=== PATIENT | male | born 1940 | race African-American/Black ===

== ENCOUNTER 2020-06-27 12:11 | Emergency (ER) | payer OTHER, MEDICARE ==
[2020-07-16] MEDS ORDERED: ACETAMINOPHEN500 MG GT (17:21)
[2020-07-16] MEDS ORDERED: LEVOTHYROXINE50 MC1 GT (17:22)
[2020-07-16] MEDS ORDERED: LIPITOR 10MG TA10 MG GT (17:22)
[2020-07-16] MEDS ORDERED: ASPIRIN EC81 MG GT (17:22)
[2020-07-16] MEDS ORDERED: LOPRESSOR25 MG GT (17:23)
[2020-07-16] MEDS ORDERED: METFORMIN HCL500 MG GT (17:23)
[2020-07-16] MEDS ORDERED: PEPCID AC20 MG GT (17:23)
[2020-07-16] MEDS ORDERED: MIRALAX17 GM GT (17:24)
[2020-07-16] MEDS ORDERED: PROTONIX 40MG T40 MG GT (17:24)
[2020-07-16] MEDS ORDERED: COMBIGAN EYE DRO5 ML OU (17:24)
[2020-07-16] MEDS ORDERED: LATANOPROST2.5 ML OU (17:25)
[2020-07-16] MEDS ORDERED: MIRTAZAPINE30 MG PO (17:27)
[2020-07-23] MEDS ORDERED: NORCO 5-325 TA1 EACH GT (12:58)
[2020-07-23] MEDS ORDERED: ONDANSETRON ODT8 MG GT (12:58)
== END 2020-06-27 14:29 | disposition home or self-care (01) ==
LOC: FER 12:11
DX: Z43.1 Encounter for attention to gastrostomy (principal); C02.9 Malignant neoplasm of tongue, unspecified
CPT/HCPCS: 74018

== ENCOUNTER → 2020-07-23 | Day surgery (SDC) | payer OTHER, MEDICARE ==
[~2020-07-23] MED LIST: ACETAMINOPHEN325 MG GT; ACETAMINOPHEN500 MG GT; ALPHAGAN 020 DROPS/M EYEBOTH; ASCORBIC ACID500 MG GT; ASPIRIN EC81 MG GT; BACTRIM DS TAB1 EACH GT; BETIMOL5 ML OU; CARAFATE1 GM GT; COMBIGAN EYE DRO5 ML OU; DIFLUCAN150 MG GT; DUONEB 2.5-0.5M1 AMP INH; FLORINEF0.1 MG GT; LATANOPROST2.5 ML OU; LEVAQUIN500 MG GT; LEVOTHYROXINE50 MC1 GT; LIPITOR 10MG TA10 MG GT; LIPITOR40 MG GT; LOPRESSOR25 MG GT; METFORMIN HCL500 MG GT; MIRALAX17 GM GT; MIRTAZAPINE30 MG GT; MIRTAZAPINE30 MG PO; NORCO 5-325 TA1 EACH GT; ONDANSETRON HCL4 MG GT; ONDANSETRON ODT8 MG GT; PENTOXIFYLLINE400 MG GT; PEPCID AC20 MG GT; PLAVIX75 MG GT; PROTONIX 40MG T40 MG GT; ROBITUSSIN100 MG/5 M GT; SYNTHROID75 MCG GT; TOPROL XL25 MG GT; TRAZODONE 50MG50 MG GT; XALATAN2.5 ML OU; XARELTO15 MG GT; ZINC SULFATE50 MG GT; [UNRECOGNIZED DRUG - OTHER]
[2020-07-23 09:59] LABS: HGB 8.5 g/dl (13.2-18.0); MCH 29.1 pg (25.0-31.0); MCHC 31.5 g/dL (32.0-36.0); MCV 92.5 fL (78.0-100.0); MPV 10.4 fL (6.0-9.5); RBC 2.92 M/uL (4.70-6.00); RDW 16.4 % (11.5-14.0); WBC 4.4 K/uL (4.0-10.5)
[2020-07-23 10:42] LABS: ALBUMIN 3.4 g/dL (3.4-5.0); BILIRUBIN - TOTAL 0.5 mg/dL (0.2-1.0); CREATININE 1.33 mg/dL (0.67-1.17); GLOBULIN (CALCULATION) 4.6 g/dL; POTASSIUM 4.9 mmol/L (3.5-5.1)
== END | disposition home or self-care (01) ==
LOC: FAS 09:08
PROVIDERS: Surgery
DX: K94.23 Gastrostomy malfunction (principal); T82.594A Other mechanical complication of infusion catheter, initial encounter; I87.2 Venous insufficiency (chronic) (peripheral); I25.10 Atherosclerotic heart disease of native coronary artery without angina pectoris; I25.2 Old myocardial infarction; I12.9 Hypertensive chronic kidney disease with stage 1 through stage 4 chronic kidney disease, or unspecified chronic kidney disease; N18.9 Chronic kidney disease, unspecified; E78.00 Pure hypercholesterolemia, unspecified; E03.9 Hypothyroidism, unspecified; E11.9 Type 2 diabetes mellitus without complications; F17.210 Nicotine dependence, cigarettes, uncomplicated; Y83.8 Other surgical procedures as the cause of abnormal reaction of the patient, or of later complication, without mention of misadventure at the time of the procedure; Z79.899 Other long term (current) drug therapy; Z79.84 Long term (current) use of oral hypoglycemic drugs; Z98.84 Bariatric surgery status; Z98.890 Other specified postprocedural states; Z20.822 Contact with and (suspected) exposure to COVID-19
CPT/HCPCS: 36415; 71045; 76000; 77001; 80053; C1788; J0690; J1644; J2001; J2250; J2704; J7120

== ENCOUNTER 2020-08-21 14:55 | Emergency (ER) | payer OTHER, MEDICARE ==
[~2020-08-21 14:55] MED LIST changes: -ACETAMINOPHEN325 MG GT; -ALPHAGAN 020 DROPS/M EYEBOTH; -ASCORBIC ACID500 MG GT; -BACTRIM DS TAB1 EACH GT; -BETIMOL5 ML OU; -CARAFATE1 GM GT; -DIFLUCAN150 MG GT; -DUONEB 2.5-0.5M1 AMP INH; -FLORINEF0.1 MG GT; -LEVAQUIN500 MG GT; -LIPITOR40 MG GT; -MIRTAZAPINE30 MG GT; -ONDANSETRON HCL4 MG GT; -PENTOXIFYLLINE400 MG GT; -PLAVIX75 MG GT; -ROBITUSSIN100 MG/5 M GT; -SYNTHROID75 MCG GT; -TOPROL XL25 MG GT; -TRAZODONE 50MG50 MG GT; -XALATAN2.5 ML OU; -XARELTO15 MG GT; -ZINC SULFATE50 MG GT; -[UNRECOGNIZED DRUG - OTHER]
== END 2020-08-21 18:08 | disposition home or self-care (01) ==
LOC: FER 14:55
DX: R51.9 Headache, unspecified (principal); H61.21 Impacted cerumen, right ear; M54.2 Cervicalgia; I25.2 Old myocardial infarction; I12.9 Hypertensive chronic kidney disease with stage 1 through stage 4 chronic kidney disease, or unspecified chronic kidney disease; E11.22 Type 2 diabetes mellitus with diabetic chronic kidney disease; N18.30 Chronic kidney disease, stage 3 unspecified; E78.5 Hyperlipidemia, unspecified; Z85.810 Personal history of malignant neoplasm of tongue; Z98.890 Other specified postprocedural states
CPT/HCPCS: 70486; 70490; 74230; 92611

== ENCOUNTER 2020-10-13 22:59 | Emergency (ER) | payer OTHER, MEDICARE ==
[2020-10-13 23:41] LABS: BASOPHIL 0.4 % (0-2); EOSINOPHIL 0.5 % (0-7); HCT 27.8 % (42.0-52.0); LYMPHOCYTE 5.3 % (15-48); MCH 30.7 pg (25.0-31.0); MCHC 30.6 g/dL (32.0-36.0); MCV 100.4 fL (78.0-100.0); MONOCYTE 13.4 % (0-12); NRBC 0; PLT 293 K/uL (150-400); RBC 2.77 M/uL (4.70-6.00); RDW 15.9 % (11.5-14.0)
[2020-10-13 23:43] LABS: HGB 8.5 g/dl (13.2-18.0)
[2020-10-13 23:44] LABS: WBC 13.1 K/uL (4.0-10.5)
[2020-10-14 00:02] LABS: ALBUMIN 2.7 g/dL (3.4-5.0); BILIRUBIN - TOTAL 0.3 mg/dL (0.2-1.0); CREATININE 1.76 mg/dL (0.67-1.17); GLOBULIN (CALCULATION) 5.3 g/dL; POTASSIUM 5.3 mmol/L (3.5-5.1)
== END 2020-10-14 03:10 | disposition other institution (70) ==
LOC: FER 22:59
PROVIDERS: Emergency Medicine
DX: I21.4 Non-ST elevation (NSTEMI) myocardial infarction (principal); R06.1 Stridor; R22.1 Localized swelling, mass and lump, neck; R74.8 Abnormal levels of other serum enzymes; I10 Essential (primary) hypertension; E11.9 Type 2 diabetes mellitus without complications; Z87.891 Personal history of nicotine dependence
CPT/HCPCS: 36415; 70491; 71045; 80053; 83605; 84484; 85025; 93005; 94640; 94760; 96374; C1751; J2930; Q9967

== ENCOUNTER 2020-11-17 18:13 | Inpatient (IN) | payer OTHER, MEDICARE ==
[~2020-11-17] VITALS: Ht 170.2 cm; Wt 70.0 kg
[2020-11-17 20:18] LABS: BASOPHIL 0.3 % (0-2); EOSINOPHIL 0.7 % (0-7); HCT 29.5 % (42.0-52.0); HGB 9.5 g/dl (13.2-18.0); LYMPHOCYTE 12.1 % (15-48); MCH 30.6 pg (25.0-31.0); MCHC 32.2 g/dL (32.0-36.0); MCV 95.2 fL (78.0-100.0); MONOCYTE 8.7 % (0-12); MPV 10.4 fL (6.0-9.5); NEUTROPHIL 77.6 % (41-80); NRBC 0; PLT 328 K/uL (150-400); RDW 14.1 % (11.5-14.0); WBC 16.2 K/uL (4.0-10.5)
[2020-11-17 20:25] LABS: BILIRUBIN NEGATIVE (NEGATIVE); BLOOD 3+ Ery/uL (NEGATIVE); COLOR YELLOW (YELLOW); GLUCOSE (U) NORMAL (NORMAL); LEUKOCYTES NEGATIVE Leu/uL (NEGATIVE); NITRITE NEGATIVE (NEGATIVE); PROTEIN TRACE (LOW) mg/dL (NEGATIVE); UROBILINOGEN 0.2 mg/dL (0.2-1.0); pH 5.5 (5.0-9.0)
[2020-11-17 20:26] LABS: CLARITY HAZY (CLEAR)
[2020-11-17 20:29] LABS: ALBUMIN 2.4 g/dL (3.4-5.0); BILIRUBIN - TOTAL 0.4 mg/dL (0.2-1.0); BUN/CREAT RATIO (CALC) 31.1 RATIO; CREATININE 1.48 mg/dL (0.67-1.17); GLOBULIN (CALCULATION) 4.8 g/dL; POTASSIUM 4.4 mmol/L (3.5-5.1); TOTAL PROTEIN 7.2 g/dL (6.4-8.2)
[2020-11-17 20:33] LABS: LACTIC ACID 2.4 mmol/L (0.4-1.9)
[2020-11-17 20:34] LABS: URINARY WBC RARE
[2020-11-17 20:35] LABS: AMORPHOUS URATES CRYSTALS MODERATE; BACTERIA TRACE; URINARY RBC 20-50
[2020-11-18] MEDS ORDERED: FLORINEF0.1 MG GT (11:48)
[2020-11-18] MEDS ORDERED: LEVAQUIN500 MG GT (11:50)
[2020-11-18] MEDS ORDERED: PENTOXIFYLLINE400 MG GT (11:51)
[2020-11-18] MEDS ORDERED: XARELTO15 MG GT (11:52)
[2020-11-18] MEDS ORDERED: CARAFATE1 GM GT (11:53)
[2020-11-18] MEDS ORDERED: TRAZODONE 50MG50 MG GT (11:54)
[2020-11-18] MEDS ORDERED: ACETAMINOPHEN325 MG GT (11:55)
[2020-11-18] MEDS ORDERED: DUONEB 2.5-0.5M1 AMP INH (11:58)
[2020-11-18] MEDS ORDERED: ASCORBIC ACID500 MG GT (11:59)
[2020-11-18] MEDS ORDERED: LIPITOR40 MG GT (11:59)
[2020-11-18] MEDS ORDERED: ALPHAGAN 020 DROPS/M EYEBOTH (12:00)
[2020-11-18] MEDS ORDERED: PEPCID AC20 MG GT (12:01)
[2020-11-18] MEDS ORDERED: PLAVIX75 MG GT (12:01)
[2020-11-18] MEDS ORDERED: ROBITUSSIN100 MG/5 M GT (12:02)
[2020-11-18] MEDS ORDERED: XALATAN2.5 ML OU (12:03)
[2020-11-18] MEDS ORDERED: METFORMIN HCL500 MG GT (12:04)
[2020-11-18] MEDS ORDERED: SYNTHROID75 MCG GT (12:04)
[2020-11-18] MEDS ORDERED: TOPROL XL25 MG GT (12:06)
[2020-11-18] MEDS ORDERED: MIRTAZAPINE30 MG GT (12:06)
[2020-11-18] MEDS ORDERED: ONDANSETRON HCL4 MG GT (12:07)
[2020-11-18] MEDS ORDERED: BETIMOL5 ML OU (12:09)
[2020-11-18] MEDS ORDERED: ZINC SULFATE50 MG GT (12:13)
--- NOTE | 2020-11-18 15:56 | NUR ---
11/18/20 Mr. Saldaña lives at home with his spouse. He was discharged from [facility] on 11/16/20. He has a trach, cane, rw, raised toiliet seat. suction, and s. chair. - [facility] id current and was notified of admission. Patient's request for PT and to have the same RN were relayed to [facility].
--- NOTE | 2020-11-18 20:04 | NUR ---
JEVITY 1.5 STARTED AT 40ML/HR PER MD MUNOZ ORDERS
--- NOTE | 2020-11-18 20:14 | NUR ---
PATIENT ON AEROSOL TPIECE. DECREASED PATIENT FROM 60% TO 35%, SAT MAINTAINED AT 100%. PATIENT WAS HYPOXIC ON ABG UPON ER VISIT. PATIENT HAS HAD COPIOUS SECRETIONS. SPUTUM SPECIMEN OBTAINED AND SENT TO LAB NOTIFIED RN AND VILMA DAVIS TO PLACE ORDER. BREATH SOUNDS IMPROVED WITH SUCTIONING, PATIENT HAS GOOD PRODUCTIVE COUGH PATIENT HAS RHONCI AND NO WHEEZING PRESENTLY. PATIENT MEDICATION SWITCHED TO FULL DOSE OF ALBUTEROL BY SUSAN ESPARZA. ALFARO SUCTION AND TUBING CHANGED OUT. CONTINUE TO MONITOR PATIENT THIS SHIFT PATIENT HAS NO COMPLAINTS OR NEEDS AT THIS TIME.
--- NOTE | 2020-11-18 21:35 | NUR ---
SPARE #6 MARIA TERESA AT BEDSIDE
[2020-11-19 04:31] LABS: BASOPHIL 0.3 % (0-2); HCT 22.4 % (42.0-52.0); LYMPHOCYTE 5.1 % (15-48); MCH 30.5 pg (25.0-31.0); MCHC 32.1 g/dL (32.0-36.0); MCV 94.9 fL (78.0-100.0); MONOCYTE 10.5 % (0-12); NEUTROPHIL 81.6 % (41-80); NRBC 0; PLT 203 K/uL (150-400); RBC 2.36 M/uL (4.70-6.00); WBC 8.6 K/uL (4.0-10.5)
[2020-11-19 04:40] LABS: HGB 7.2 g/dl (13.2-18.0)
[2020-11-19 04:41] LABS: BUN/CREAT RATIO (CALC) 29.1 RATIO; CREATININE 1.34 mg/dL (0.67-1.17); POTASSIUM 3.9 mmol/L (3.5-5.1)
[2020-11-19 08:54] LABS: HCT 21.3 % (42.0-52.0); HGB 7.1 g/dL (13.2-18.0)
[2020-11-19] MEDS ORDERED: [UNRECOGNIZED DRUG - OTHER] (13:52)
[2020-11-20 04:32] LABS: BASOPHIL 0.3 % (0-2); EOSINOPHIL 2.8 % (0-7); HCT 30.4 % (42.0-52.0); LYMPHOCYTE 7.1 % (15-48); MCH 30.7 pg (25.0-31.0); MCHC 33.2 g/dL (32.0-36.0); MCV 92.4 fL (78.0-100.0); MONOCYTE 9.8 % (0-12); MPV 9.9 fL (6.0-9.5); NEUTROPHIL 79.7 % (41-80); NRBC 0; PLT 230 K/uL (150-400); RBC 3.29 M/uL (4.70-6.00); WBC 9.3 K/uL (4.0-10.5)
[2020-11-20 04:34] LABS: HGB 10.1 g/dl (13.2-18.0)
[2020-11-20 04:45] LABS: BUN/CREAT RATIO (CALC) 28.2 RATIO; CREATININE 1.24 mg/dL (0.67-1.17); POTASSIUM 3.9 mmol/L (3.5-5.1)
--- NOTE | 2020-11-20 10:47 | NUR ---
11/20/20 Discharge is anticipated for 11/21. Please notify [facility] at [phone] if patient is discharged over the weekend. 02 was ordered and delivered from [facility]. However, per physician, patient no longer needs 02. [employer] picked up the 02.
--- NOTE | 2020-11-20 12:11 | NUR ---
11/20/20 Dr. Boyle requested a nebulizer to be arranged at discharge. Ms. Saldaña reports to already have a nebulizer.
[2020-11-21 04:08] LABS: BASOPHIL 0.4 % (0-2); EOSINOPHIL 2.6 % (0-7); HCT 30.5 % (42.0-52.0); HGB 9.9 g/dl (13.2-18.0); LYMPHOCYTE 5.4 % (15-48); MCH 30.2 pg (25.0-31.0); MCHC 32.5 g/dL (32.0-36.0); MONOCYTE 11.4 % (0-12); MPV 9.3 fL (6.0-9.5); NEUTROPHIL 79.8 % (41-80); NRBC 0; PLT 212 K/uL (150-400); RBC 3.28 M/uL (4.70-6.00); RDW 15.1 % (11.5-14.0); WBC 8.2 K/uL (4.0-10.5)
[2020-11-21 04:36] LABS: CREATININE 1.26 mg/dL (0.67-1.17); POTASSIUM 3.9 mmol/L (3.5-5.1)
[2020-11-21 12:02] LABS: BILIRUBIN 3+ mg/dL (NEGATIVE); BLOOD 3+ Ery/uL (NEGATIVE); GLUCOSE (U) TRACE mg/dL (NORMAL); LEUKOCYTES 2+ Leu/uL (NEGATIVE); NITRITE POSITIVE (NEGATIVE); PROTEIN 3+ mg/dL (NEGATIVE); SPECIFIC GRAVITY 1.015 (1.001-1.030)
[2020-11-21 12:04] LABS: CLARITY TURBID (CLEAR); COLOR RED (YELLOW)
[2020-11-21 12:11] LABS: BACTERIA 1+; URINARY RBC TNTC
[2020-11-21 20:40] LABS: INR 1.23 (0.9-1.2); PROTHROMBIN TIME 14.7 SECONDS (11.4-13.6)
[2020-11-21 20:41] LABS: PTT 61.2 SECONDS (22.2-34.7)
[2020-11-23 04:36] LABS: BASOPHIL 0.5 % (0-2); EOSINOPHIL 1.7 % (0-7); HCT 29.9 % (42.0-52.0); HGB 9.7 g/dl (13.2-18.0); LYMPHOCYTE 7.6 % (15-48); MCH 30.6 pg (25.0-31.0); MCHC 32.4 g/dL (32.0-36.0); MCV 94.3 fL (78.0-100.0); MPV 9.5 fL (6.0-9.5); NEUTROPHIL 79.7 % (41-80); NRBC 0; PLT 225 K/uL (150-400); RBC 3.17 M/uL (4.70-6.00); RDW 14.8 % (11.5-14.0); WBC 8.3 K/uL (4.0-10.5)
[2020-11-23 04:54] LABS: CREATININE 1.41 mg/dL (0.67-1.17); POTASSIUM 4.6 mmol/L (3.5-5.1)
--- NOTE | 2020-11-23 12:30 | NUR ---
SPOKE WITH SPOUSE VIA TELEPHONE. SHE ADVISED THAT PT. HAS SUCTION EQUIPMENT, NEUBLIZER, CANE, RW, RAISED TOLIET SEAT, SHOWER CHAIR. HE IS CURRENT WITH [facility]. PER PT. NO LONGER REQUIRES HOME O2. ADVISED DR. CANAS OF THE INFORMATION RECEIVED FROM HIS SPOUSE. DR. CANAS STATED HE MAY D/C PT ON 11/24/20.
[2020-11-23] MEDS ORDERED: DIFLUCAN150 MG GT (13:12)
[2020-11-23] MEDS ORDERED: BACTRIM DS TAB1 EACH GT (13:12)
--- NOTE | 2020-11-24 02:12 | NUR ---
TRACH MASK AND AEROSOL HUMIDFIER CHANGED AND CANISTER FILLED PATIENT REFUSED SUCTION AT THIS TIME. #6 MARIA TERESA, SAT 99% ON 28%/5LPM AEROSOL.
[2020-11-24 08:58] LABS: BASOPHIL 0.5 % (0-2); EOSINOPHIL 1.8 % (0-7); HCT 25.1 % (42.0-52.0); LYMPHOCYTE 6.7 % (15-48); MCH 30.3 pg (25.0-31.0); MCHC 31.9 g/dL (32.0-36.0); MCV 95.1 fL (78.0-100.0); MONOCYTE 11.9 % (0-12); MPV 9.6 fL (6.0-9.5); NEUTROPHIL 78.6 % (41-80); NRBC 0; PLT 212 K/uL (150-400); RBC 2.64 M/uL (4.70-6.00); RDW 14.8 % (11.5-14.0); WBC 6.6 K/uL (4.0-10.5)
[2020-11-24 11:09] LABS: CREATININE 1.7 mg/dL (0.67-1.17); POTASSIUM 5.2 mmol/L (3.5-5.1)
--- NOTE | 2020-11-24 16:25 | NUR ---
PT TO [facility] AT 1610.
--- NOTE | 2020-11-24 18:38 | NUR ---
PT VOIDED AT THIS TIME 150CC. BLADDER SCAN PATIENT AFTER VOID 75CC PVR
[2020-11-25 05:44] LABS: BASOPHIL 0.5 % (0-2); EOSINOPHIL 2.8 % (0-7); HGB 8.5 g/dl (13.2-18.0); LYMPHOCYTE 7.6 % (15-48); MCH 30.5 pg (25.0-31.0); MCHC 31.5 g/dL (32.0-36.0); MCV 96.8 fL (78.0-100.0); MONOCYTE 11.4 % (0-12); MPV 9.5 fL (6.0-9.5); NEUTROPHIL 77.3 % (41-80); NRBC 0; PLT 221 K/uL (150-400); RBC 2.79 M/uL (4.70-6.00); RDW 14.9 % (11.5-14.0); WBC 7.7 K/uL (4.0-10.5)
[2020-11-25 06:07] LABS: INR 1.2 (0.9-1.2); PROTHROMBIN TIME 14.4 SECONDS (11.4-13.6)
[2020-11-25 06:20] LABS: CREATININE 1.74 mg/dL (0.67-1.17)
[2020-11-25 06:21] LABS: POTASSIUM 5.6 mmol/L (3.5-5.1)
[2020-11-26 15:41] LABS: BILIRUBIN NEGATIVE (NEGATIVE); BLOOD 3+ Ery/uL (NEGATIVE); COLOR YELLOW (YELLOW); GLUCOSE (U) NORMAL (NORMAL); LEUKOCYTES NEGATIVE Leu/uL (NEGATIVE); NITRITE NEGATIVE (NEGATIVE); PROTEIN 2+ mg/dL (NEGATIVE); SPECIFIC GRAVITY 1.015 (1.001-1.030)
[2020-11-26 15:46] LABS: CLARITY HAZY (CLEAR)
[2020-11-26 15:51] LABS: URINARY RBC TNTC
[2020-11-27 06:43] LABS: BASOPHIL 0.4 % (0-2); EOSINOPHIL 2.5 % (0-7); HCT 25.1 % (42.0-52.0); HGB 7.8 g/dl (13.2-18.0); MCH 30.4 pg (25.0-31.0); MCHC 31.1 g/dL (32.0-36.0); MCV 97.7 fL (78.0-100.0); MONOCYTE 11.2 % (0-12); MPV 9.7 fL (6.0-9.5); NEUTROPHIL 77.5 % (41-80); NRBC 0; PLT 214 K/uL (150-400); RBC 2.57 M/uL (4.70-6.00); RDW 14.7 % (11.5-14.0); WBC 5.5 K/uL (4.0-10.5)
[2020-11-27 07:18] LABS: CREATININE 1.8 mg/dL (0.67-1.17); POTASSIUM 5.1 mmol/L (3.5-5.1)
[2020-11-27 07:19] LABS: BILIRUBIN - TOTAL 0.4 mg/dL (0.2-1.0)
[2020-11-27 10:25] LABS: BILIRUBIN NEGATIVE (NEGATIVE); BLOOD 3+ Ery/uL (NEGATIVE); CLARITY CLEAR (CLEAR); COLOR YELLOW (YELLOW); GLUCOSE (U) NORMAL (NORMAL); LEUKOCYTES NEGATIVE Leu/uL (NEGATIVE); NITRITE NEGATIVE (NEGATIVE); PROTEIN 2+ mg/dL (NEGATIVE); SPECIFIC GRAVITY 1.015 (1.001-1.030)
[2020-11-27 10:38] LABS: BACTERIA TRACE; URINARY RBC 20-50
--- NOTE | 2020-11-27 10:47 | NUR ---
MET WITH PT, SPOUSE AND DAUGHTER, PADDY. THEY ARE INTERESTED IN PT. GOING [facility] FOR [facility]. THEIR FIRST CHOICE IS [facility] IN [place]. THEY ARE CURRENT WITH [facility] AND WOULD BE INTERESTED IN CONTINUING CARE WITH [facility] AND HIRING A PRIVATE CAREGIVING COMPANY TO OFFER ASSISTANCE. GAVE THE NAME OF [employer] A CAREGIVING SERVICE PHONE NUMBER IS [phone].
--- NOTE | 2020-11-27 10:50 | NUR ---
REFERRAL HAS BEEN SENT TO [facility] IN [place] FAX NUMBER IS [phone]. [facility] NUMBER IS [phone].
--- NOTE | 2020-11-27 14:55 | NUR ---
RECEIVED TC FROM [place] WITH [facility]. THEY HAVE RECEIVED REFERRAL AND ARE WORKING ON THE REFERRAL, IT MAY BE MONDAY BEFORE WE HAVE AN ANSWER. [place] MOBILE NUMBER IS [phone]. ADVISED MRS. WATERS OF THIS INFORMATION.
[2020-11-28 05:47] LABS: BASOPHIL 0.5 % (0-2); EOSINOPHIL 2.2 % (0-7); HCT 27.6 % (42.0-52.0); HGB 8.6 g/dl (13.2-18.0); LYMPHOCYTE 11.4 % (15-48); MCH 30.3 pg (25.0-31.0); MCHC 31.2 g/dL (32.0-36.0); MCV 97.2 fL (78.0-100.0); MONOCYTE 10.6 % (0-12); MPV 9.8 fL (6.0-9.5); NRBC 0; PLT 260 K/uL (150-400); RBC 2.84 M/uL (4.70-6.00); RDW 14.8 % (11.5-14.0); WBC 7.4 K/uL (4.0-10.5)
[2020-11-28 06:09] LABS: IRON % SATURATION 44.7 %SAT (20-50)
[2020-11-28 06:45] LABS: BUN/CREAT RATIO (CALC) 17.6 RATIO; CREATININE 1.82 mg/dL (0.67-1.17); FOLIC ACID (SERUM) 14.5 ng/mL (8.6-58.9); POTASSIUM 5.2 mmol/L (3.5-5.1)
--- NOTE | 2020-11-28 11:01 | NUR ---
TRACH CARE AND SUCTIONING PROVIDED AT 0930
[2020-11-29 03:48] LABS: BASOPHIL 0.5 % (0-2); EOSINOPHIL 0.9 % (0-7); HCT 27.4 % (42.0-52.0); HGB 8.7 g/dl (13.2-18.0); LYMPHOCYTE 5.3 % (15-48); MCH 30.5 pg (25.0-31.0); MCHC 31.8 g/dL (32.0-36.0); MCV 96.1 fL (78.0-100.0); MONOCYTE 9.6 % (0-12); MPV 9.7 fL (6.0-9.5); NEUTROPHIL 83.2 % (41-80); NRBC 0; PLT 249 K/uL (150-400); RBC 2.85 M/uL (4.70-6.00); RDW 14.8 % (11.5-14.0); WBC 8.2 K/uL (4.0-10.5)
[2020-11-29 04:09] LABS: BUN/CREAT RATIO (CALC) 20.7 RATIO; CREATININE 1.84 mg/dL (0.67-1.17)
[2020-11-29 04:47] LABS: BILIRUBIN NEGATIVE (NEGATIVE); BLOOD 3+ Ery/uL (NEGATIVE); CLARITY CLEAR (CLEAR); COLOR YELLOW (YELLOW); GLUCOSE (U) NORMAL (NORMAL); LEUKOCYTES NEGATIVE Leu/uL (NEGATIVE); NITRITE NEGATIVE (NEGATIVE); PROTEIN 1+ mg/dL (NEGATIVE); SPECIFIC GRAVITY 1.025 (1.001-1.030); UROBILINOGEN 0.2 mg/dL (0.2-1.0); pH 5.5 (5.0-9.0)
[2020-11-29 04:52] LABS: BACTERIA 2+; URINARY RBC 20-50
[2020-11-29 04:53] LABS: AMORPHOUS URATES CRYSTALS TRACE; MUCOUS TRACE
[2020-12-01 08:18] LABS: BASOPHIL 0.5 % (0-2); EOSINOPHIL 1.4 % (0-7); HCT 24.2 % (42.0-52.0); HGB 7.7 g/dl (13.2-18.0); LYMPHOCYTE 10.2 % (15-48); MCH 30.6 pg (25.0-31.0); MCHC 31.8 g/dL (32.0-36.0); MONOCYTE 11.9 % (0-12); MPV 9.5 fL (6.0-9.5); NEUTROPHIL 75.7 % (41-80); NRBC 0; PLT 208 K/uL (150-400); RBC 2.52 M/uL (4.70-6.00); RDW 15.2 % (11.5-14.0); WBC 6.3 K/uL (4.0-10.5)
[2020-12-01 08:51] LABS: BUN/CREAT RATIO (CALC) 19.9 RATIO; CREATININE 2.11 mg/dL (0.67-1.17); POTASSIUM 5.9 mmol/L (3.5-5.1)
--- NOTE | 2020-12-01 15:17 | NUR ---
TC FROM [facility] AT [facility]. INS DENIED STAY AT [facility]. DR. MUNOZ AGREED TO A PEER TO PEER. TC TO DAUGHTER, KAVITA. HAD TO LEAVE A MESSAGE REGARDING D/C PLANS FOR HER FATHER.
[2020-12-02 06:02] LABS: BASOPHIL 0.6 % (0-2); EOSINOPHIL 2.5 % (0-7); HCT 25.4 % (42.0-52.0); LYMPHOCYTE 7.4 % (15-48); MCH 30.8 pg (25.0-31.0); MCHC 31.5 g/dL (32.0-36.0); MCV 97.7 fL (78.0-100.0); MONOCYTE 14.1 % (0-12); MPV 9.7 fL (6.0-9.5); NEUTROPHIL 75.1 % (41-80); NRBC 0; PLT 220 K/uL (150-400); RDW 15.3 % (11.5-14.0); WBC 6.3 K/uL (4.0-10.5)
[2020-12-02 06:22] LABS: CREATININE 2.11 mg/dL (0.67-1.17); POTASSIUM 6.5 mmol/L (3.5-5.1)
--- NOTE | 2020-12-02 10:30 | NUR ---
SPOKE WITH SPOUSE AND DAUGHTER. ADVISED BY THAT SHE WOULD LIKE HER TRANSFERRED TO [facility]. ADVISED DR. MUNOZ OF THE REQUEST AND HE WILL START THE PROCEEDINGS.
[2020-12-02 15:22] LABS: BUN/CREAT RATIO (CALC) 18.9 RATIO; CREATININE 1.96 mg/dL (0.67-1.17); POTASSIUM 6.3 mmol/L (3.5-5.1)
--- NOTE | 2020-12-02 18:04 | NUR ---
PT WAS SUCTIONED A MULTIPLE OF TIMES THROUGHOUT NIALL RN SHIFT 7A-7P THICK, COPIUS AMOUNT OF YELLOW DRAINAGE SUCTIONED THROUGH TRACHEOSTOMY. INNER CANNULA REPLACED 3 TIMES THROUGHOUT SHIFT TWICE BY NIALL RN AND ONCE THROUGH TI RT TI CRAIG ALSO CAME AND LAVAGED PATIENT IN ORDER TO HELP THIN SECRETIONS PT WOULD REPEATILY COMPLAIN OF SHORTNESS OF AIR, SATS WERE CHECKED EACH TIME NEVER BELOW 90% ATIVAN HAD BEEN GIVEN- SEE EMAR PT IS NOW RESTING PEACFULLY IN CHAIR WITH AT BEDSIDE WITH NO COMPLAINTS.
--- NOTE | 2020-12-03 03:03 | NUR ---
ANSWERED CALL FROM TRANSFER CENTER. TOLD THAT THERE WAS A BED FOR KARINE WATERS. ROOM 448 4 [facility]. NOTES FROM [facility] OPERATOR IN CHART. INITIATED TRANSFER AT 0116. REPORT GIVEN TO LUIS A MAGALLON AT 0116. DR. CHAVEZ SIMMS ACCEPTING PATIENT TO PULMONARY UNIT FOR HIGHER LEVEL OF CARE. PT. FAMILY NOTIFIED OF TRANSFER. EMS HERE TO [facility] REFUELING HAND[employer]ER PT. AT 0245. IV FLUIDS D/C. 100 ML FREE WATER FLUSH GIVEN THROUGH G TUBE. G-TUBE CLAMPED, TUBE FEEDS TURNED OFF.
--- NOTE | 2020-12-03 04:07 | NUR ---
VS UPON TRANSFER TO [facility] 137/64 86 97.6 20 91%
== END 2020-12-03 03:30 | disposition other institution (70) | DRG 871 ==
LOC: FER 18:13 → FTCU 11-18 07:25 → FICU 11-18 07:25 → FMS 11-18 07:25 → FTCU 11-21 12:15 → FMS 11-24 11:47
PROVIDERS: Emergency Medicine Emergency Medical Services; Internal Medicine; Nurse Practitioner; ADMIT Allergy & Immunology Allergy
PROC: 30233N1 Transfusion of Nonautologous Red Blood Cells into Peripheral Vein, Percutaneous Approach (ICD-10-PCS; principal; 2020-11-19)
DX: A41.89 Other specified sepsis (principal); J15.8 Pneumonia due to other specified bacteria; B37.1 Pulmonary candidiasis; I50.21 Acute systolic (congestive) heart failure; I21.A1 Myocardial infarction type 2; J96.01 Acute respiratory failure with hypoxia; D68.32 Hemorrhagic disorder due to extrinsic circulating anticoagulants; D62 Acute posthemorrhagic anemia; N17.9 Acute kidney failure, unspecified; B37.7 Candidal sepsis; T45.515A Adverse effect of anticoagulants, initial encounter; Z20.822 Contact with and (suspected) exposure to COVID-19; L89.152 Pressure ulcer of sacral region, stage 2; L89.312 Pressure ulcer of right buttock, stage 2; L89.892 Pressure ulcer of other site, stage 2; N18.30 Chronic kidney disease, stage 3 unspecified; D63.1 Anemia in chronic kidney disease; E11.22 Type 2 diabetes mellitus with diabetic chronic kidney disease; I25.10 Atherosclerotic heart disease of native coronary artery without angina pectoris; E05.90 Thyrotoxicosis, unspecified without thyrotoxic crisis or storm; E87.5 Hyperkalemia; E78.5 Hyperlipidemia, unspecified; R13.10 Dysphagia, unspecified; R31.9 Hematuria, unspecified; Z86.718 Personal history of other venous thrombosis and embolism; Z95.0 Presence of cardiac pacemaker; I25.2 Old myocardial infarction; Z95.5 Presence of coronary angioplasty implant and graft; Z90.89 Acquired absence of other organs; Z87.891 Personal history of nicotine dependence; Z87.01 Personal history of pneumonia (recurrent); Z79.84 Long term (current) use of oral hypoglycemic drugs; Z79.01 Long term (current) use of anticoagulants; Z79.02 Long term (current) use of antithrombotics/antiplatelets; Z79.899 Other long term (current) drug therapy; Z93.0 Tracheostomy status; Y95 Nosocomial condition
CPT/HCPCS: 36415; 36430; 36600; 71045; 71250; 80048; 80053; 80202; 81001; 82150; 82607; 82728; 82746; 82803; 82962; 83540; 83550; 83605; 83880; 84145; 84484; 85014; 85018; 85025; 85610; 85730; 86850; 86900; 86901; 86922; 87040; 87070; 87077; 87088; 87186; 87205; 93005; 94640; 94667; 94668; 94760; 94762; 96365; 96367; 96372; 96375; 97162; 97166; 97530-GP; 97535; C1751; C9113; J0610; J0692; J1650; J1940; J2060; J2543; J2916; J2997; J7030; J7040; J7120; P9016; U0002

== ENCOUNTER 2021-01-26 07:16 | Emergency (ER) | payer OTHER, MEDICARE ==
[~2021-01-26 07:16] MED LIST changes: +ACETAMINOPHEN325 MG GT; +ALPHAGAN 020 DROPS/M EYEBOTH; +ASCORBIC ACID500 MG GT; +BACTRIM DS TAB1 EACH GT; +BETIMOL5 ML OU; +CARAFATE1 GM GT; +DIFLUCAN150 MG GT; +DUONEB 2.5-0.5M1 AMP INH; +FLORINEF0.1 MG GT; +LEVAQUIN500 MG GT; +LIPITOR40 MG GT; +MIRTAZAPINE30 MG GT; +ONDANSETRON HCL4 MG GT; +PENTOXIFYLLINE400 MG GT; +PLAVIX75 MG GT; +ROBITUSSIN100 MG/5 M GT; +SYNTHROID75 MCG GT; +TOPROL XL25 MG GT; +TRAZODONE 50MG50 MG GT; +XALATAN2.5 ML OU; +XARELTO15 MG GT; +ZINC SULFATE50 MG GT; +[UNRECOGNIZED DRUG - OTHER]
[2021-01-26 10:06] LABS: BASOPHIL 0.2 % (0-2); EOSINOPHIL 2.1 % (0-7); HCT 23.1 % (42.0-52.0); HGB 7.1 g/dl (13.2-18.0); LYMPHOCYTE 8.1 % (15-48); MCH 31.8 pg (25.0-31.0); MCHC 30.7 g/dL (32.0-36.0); MCV 103.6 fL (78.0-100.0); MONOCYTE 14.4 % (0-12); MPV 10.6 fL (6.0-9.5); NEUTROPHIL 74.6 % (41-80); NRBC 0.2; PLT 219 K/uL (150-400); RBC 2.23 M/uL (4.70-6.00); RDW 17.2 % (11.5-14.0); WBC 8.2 K/uL (4.0-10.5)
[2021-01-26 10:27] LABS: INR 1.15 (0.9-1.2); PROTHROMBIN TIME 14.1 SECONDS (11.8-13.4); PTT 29.8 SECONDS (24.4-34.7)
[2021-01-26 10:33] LABS: ALBUMIN 3.5 g/dL (3.4-5.0); BILIRUBIN - TOTAL 0.4 mg/dL (0.2-1.0); CREATININE 2.25 mg/dL (0.67-1.17); GLOBULIN (CALCULATION) 4.6 g/dL; POTASSIUM 4.8 mmol/L (3.5-5.1); TOTAL PROTEIN 8.1 g/dL (6.4-8.2)
[2021-01-26 17:47] LABS: HCT 25.8 % (42.0-52.0); HGB 8.1 g/dL (13.2-18.0)
== END 2021-01-26 20:05 | disposition home or self-care (01) ==
LOC: FER 07:16
PROVIDERS: Emergency Medicine; Internal Medicine
DX: J95.09 Other tracheostomy complication (principal); D64.9 Anemia, unspecified; I12.9 Hypertensive chronic kidney disease with stage 1 through stage 4 chronic kidney disease, or unspecified chronic kidney disease; N18.2 Chronic kidney disease, stage 2 (mild); Z85.21 Personal history of malignant neoplasm of larynx; Z98.890 Other specified postprocedural states; Z87.891 Personal history of nicotine dependence
CPT/HCPCS: 36415; 36430; 70490; 71250; 80053; 85014; 85018; 85025; 85610; 85730; 86850; 86900; 86901; 86922; 99283; J7040; P9016